=== PATIENT | female | born 1940 | race Caucasian/White ===

== ENCOUNTER 2017-08-18 09:48 | Inpatient (IN) | payer OTHER, MEDICARE ==
[~2017-08-18] VITALS: Ht 154.9 cm; Wt 65.3 kg
[2017-08-18] VITALS (9 sets, daily range): BP systolic 130–188; BP diastolic 63–93; PULSE 80–95; RESP 14–22; TEMP 98.3–99.4; O2SAT 95–100
[2017-08-18] MEDS ORDERED: SIMV20TA PO (10:24)
[2017-08-18] MEDS ORDERED: LISI-515 PO (10:24)
--- NOTE | 2017-08-18 10:40 | PD ---
HPI Chief Complaint: Chest Pain Time Seen by Provider: 10:35 Travel History International Travel<30 days: No Contact w/Intl Traveler<30days: No Traveled to known affect area: No History of Present Illness HPI 76-year-old male patient with history of hypertension and high cholesterol, presents to the ER today for chest pains that has been going on intermittently over the last week. She states that it seems to be pressure-like and radiates up into her neck area, and reports mild shortness of breath. She denies any nausea, vomiting, fevers, or other symptoms. She denies any significant pain currently. Modifying Factors: None Associated Signs & Symptoms: Chest pain Risk Factors: chest pain PFSH Past Medical History High Cholesterol: Yes Diminished Hearing: No Hypertension: Yes Tetanus Vaccination: < 5 Years Influenza Vaccination: No : 3 Para: 3 Miscarriage: 0 : 0 Past Surgical History Cholecystectomy: Yes Hysterectomy: Yes Social History Alcohol Use: Yes (BEER FREQUENTLY) Tobacco Use: No Substance Use: No Allergies-Medications (Allergen,Severity, Reaction): Coded Allergies: aspirin (Verified Adverse Reaction, Intermediate, Heartburn, 08/18/17) Reported Meds & Prescriptions Reported Meds & Active Scripts Active Reported Simvastatin 20 Mg Tab 20 Mg PO DAILY Lisinopril 20 Mg Tab 20 Mg PO DAILY Review of Systems Except as stated in HPI: all other systems reviewed are Neg Physical Exam Narrative GENERAL: Well-developed elderly female patient currently in mild distress. Awake and oriented 3. SKIN: Focused skin assessment warm/dry. HEAD: Atraumatic. Normocephalic. EYES: Pupils equal and round. No scleral icterus. No injection or drainage. ENT: No nasal bleeding or discharge. Mucous membranes pink and moist. NECK: Trachea midline. No JVD. Supple. No palpable masses. CARDIOVASCULAR: Regular rate and rhythm. No murmur appreciated. RESPIRATORY: No accessory muscle use. Clear to auscultation. Breath sounds equal bilaterally. GASTROINTESTINAL: Abdomen soft, non-tender, nondistended. Hepatic and splenic margins not palpable. MUSCULOSKELETAL: No obvious deformities. No clubbing. No cyanosis. No edema. NEUROLOGICAL: Awake and alert. No obvious cranial nerve deficits. Motor grossly within normal limits. Normal speech. PSYCHIATRIC: Appropriate mood and affect; insight and judgment normal. Data Data Last Documented VS Vital Signs Date Time Temp Pulse Resp B/P (MAP) Pulse Ox O2 Delivery O2 Flow Rate FiO2 08/18/17 10:25 22 100 Room Air 08/18/17 10:21 82 08/18/17 09:51 98.7 Orders Orders Electrocardiogram (08/18/17 ) Electrocardiogram (08/18/17 10:35) Ckmb (Isoenzyme) Profile (08/18/17 10:35) Complete Blood Count With Diff (08/18/17 10:35) Comprehensive Metabolic Panel (08/18/17 10:35) Magnesium (Mg) (08/18/17 10:35) Prothrombin Time / Inr (Pt) (08/18/17 10:35) Act Partial Throm Time (Ptt) (08/18/17 10:35) Troponin I (08/18/17 10:35) Chest, Single Ap (08/18/17 10:35) Ecg Monitoring (08/18/17 10:35) Bilateral Bp Monitoring (08/18/17 10:35) Iv Access Insert/Monitor (08/18/17 10:35) Oximetry (08/18/17 10:35) Oxygen Administration (08/18/17 10:35) Sodium Chloride 0.9% Flush (Ns Flush) (08/18/17 10:45) Labs Laboratory Tests Test 08/18/17 10:55 White Blood Count 9.7 TH/MM3 Red Blood Count 4.50 MIL/MM3 Hemoglobin 13.3 GM/DL Hematocrit 38.8 % Mean Corpuscular Volume 86.1 FL Mean Corpuscular Hemoglobin 29.6 PG Mean Corpuscular Hemoglobin Concent 34.4 % Red Cell Distribution Width 14.7 % Platelet Count 299 TH/MM3 Mean Platelet Volume 9.2 FL Neutrophils (%) (Auto) 64.5 % Lymphocytes (%) (Auto) 26.3 % Monocytes (%) (Auto) 8.0 % Eosinophils (%) (Auto) 0.6 % Basophils (%) (Auto) 0.6 % Neutrophils # (Auto) 6.2 TH/MM3 Lymphocytes # (Auto) 2.5 TH/MM3 Monocytes # (Auto) 0.8 TH/MM3 Eosinophils # (Auto) 0.1 TH/MM3 Basophils # (Auto) 0.1 TH/MM3 CBC Comment DIFF FINAL Differential Comment Prothrombin Time 10.2 SEC Prothromb Time International Ratio 1.0 RATIO Activated Partial Thromboplast Time 30.2 SEC Blood Urea Nitrogen 15 MG/DL Creatinine 0.83 MG/DL Random Glucose 117 MG/DL Total Protein 7.5 GM/DL Albumin 3.0 GM/DL Calcium Level 8.8 MG/DL Magnesium Level 2.1 MG/DL Alkaline Phosphatase 96 U/L Aspartate Amino Transf (AST/SGOT) 18 U/L Alanine Aminotransferase (ALT/SGPT) 14 U/L Total Bilirubin 0.5 MG/DL Sodium Level 138 MEQ/L Potassium Level 3.7 MEQ/L Chloride Level 106 MEQ/L Carbon Dioxide Level 24.0 MEQ/L Anion Gap 8 MEQ/L Estimat Glomerular Filtration Rate 67 ML/MIN Total Creatine Kinase 43 U/L Troponin I LESS THAN 0.02 NG/ML [place] Medical Decision Making Medical Screen Exam Complete: Yes Emergency Medical Condition: Yes Medical Record Reviewed: Yes Interpretation(s) EKG shows NSR, no ST elevation or depression, and no arrhythmias. No significant T-wave inversions. Laboratory Tests Test 08/18/17 10:55 Activated Partial Thromboplast Time 30.2 SEC (24.3-30.1) Random Glucose 117 MG/DL (74-106) Albumin 3.0 GM/DL (3.4-5.0) Estimat Glomerular Filtration Rate 67 ML/MIN (>89) Troponin I LESS THAN 0.02 NG/ML Differential Diagnosis Chest pain: ACS versus anxiety attack versus musculoskeletal Narrative Course EKG did not show some signs of dysrhythmias. Cardiac enzymes negative. Chest x -ray is unremarkable. At this point, my plan would be to admit her for further evaluation of chest pain. Diagnosis Primary Impression: Chest pain Admitting Information Admitting Physician Requests: Admit Mau Acosta MD Aug 18, 2017 10:40
[2017-08-18] MEDS ORDERED: SODIUM CHLORIDE 0.9% FLUSH 10 ML FLUSH IVF PRN (10:45)
--- NOTE | 2017-08-18 10:55 | RADRPT ---
EXAM DATE/TIME: 08/18/2017 10:43 [facility] COMPARISON: No previous studies available for comparison. INDICATIONS : Pain in chest, neck and jaw off and on for 2 weeks, denies injury, no pain this morning MEDICAL HISTORY : None. SURGICAL HISTORY : Hysterectomy. Cholecystectomy. ENCOUNTER: Initial ACUITY: 2 weeks PAIN SCORE: 0/10 LOCATION: Bilateral chest FINDINGS: A single view of the chest demonstrates the lungs to be symmetrically aerated without evidence of mas s, infiltrate or effusion. The cardiomediastinal contours are unremarkable. Osseous structures are intact. CONCLUSION: No acute disease. Jaren Alarcon MD FACR on August 18, 2017 at 10:53 Board Certified Radiologist. This report was verified electronically.
[2017-08-18 11:17] LABS: AUTOMATED NEUTROPHIL # 6.2 TH/MM3 (1.8-7.7); BASOPHIL # 0.1 TH/MM3 (0-0.2); BASOPHIL % 0.6 % (0.0-2.0); EOSINOPHIL # 0.1 TH/MM3 (0-0.4); EOSINOPHIL % 0.6 % (0.0-4.0); HEMATOCRIT 38.8 % (35.0-46.0); HEMOGLOBIN 13.3 GM/DL (11.6-15.3); LYMPH % 26.3 % (9.0-44.0); LYMPHOCYTE # 2.5 TH/MM3 (1.0-4.8); MEAN CELL VOLUME 86.1 FL (80.0-100.0); MEAN CORPUSCULAR HEMOGLOBIN 29.6 PG (27.0-34.0); MEAN CORPUSCULAR HGB CONC 34.4 % (32.0-36.0); MEAN PLATELET VOLUME 9.2 FL (7.0-11.0); MONOCYTE # 0.8 TH/MM3 (0-0.9); NEUT % 64.5 % (16.0-70.0); PLATELET COUNT 299 TH/MM3 (150-450); RED CELL DISTRIBUTION WIDTH 14.7 % (11.6-17.2); WHITE BLOOD COUNT 9.7 TH/MM3 (4.0-11.0)
[2017-08-18 11:33] LABS: PROTHROMBIN TIME - PATIENT 10.2 SEC (9.8-11.6)
[2017-08-18 11:34] LABS: ALT (GPT) 14 U/L (10-53); AST (GOT) 18 U/L (15-37); BLOOD UREA NITROGEN 15 MG/DL (7-18); CALCIUM 8.8 MG/DL (8.5-10.1); CHLORIDE 106 MEQ/L (98-107); CREATININE 0.83 MG/DL (0.50-1.00); GLOMERULAR FILTRATION RATE 67 ML/MIN (>89); GLUCOSE,RANDOM 117 MG/DL (74-106); MAGNESIUM 2.1 MG/DL (1.5-2.5); SODIUM (NA) 138 MEQ/L (136-145)
[2017-08-18 11:38] LABS: ALKALINE PHOSPHATASE 96 U/L (45-117); TOTAL BILIRUBIN ADULT 0.5 MG/DL (0.2-1.0); TOTAL PROTEIN 7.5 GM/DL (6.4-8.2); TROPONIN I LESS THAN 0.02 NG/ML (0.02-0.05)
--- NOTE | 2017-08-18 12:41 | HHI.HP ---
[facility] Primary Care Physician Meenakshi Evans MD Chief Complaint Chest pain History of Present Illness This is a 76-year-old female history of hypertension and hyperlipidemia presents to ED via private vehicle with her with a complaint of chest discomfort. Patient states she has been having a chest pressure in the upper chest as well as neck discomfort and jaw discomfort intermittently for the past week. States taking Advil does seem to help within a couple hours reducing the discomfort but it will last for a total of 5 hours. If she does not take an Advil he can linger on longer. She thinks that pressing on the area and certain movements seem to worsen her symptoms. Also over the last few days she has become short of breath with the symptoms. Denies nausea or diaphoresis. Has no dyspnea on exertion. Has not noticed any weight changes or swelling in legs. Denies history of CAD but cannot recall ever having a stress test. Has never had a cardiac catheterization. Voices compliance with her medications. Patient initially was going to leave AGAINST MEDICAL ADVICE, stated "I have pets at home." Patient has since changed her mind and will come to chest pain center to rule out and if so will have stress test in the morning. Review of Systems General: Patient denies fevers, chills recent, and recent travel HEENT: Patient denies headache, sore throat, difficulty swallowing. Cardiovascular: Has the chest discomfort as mentioned above. Denies sensation of heart beating rapidly or irregularly. No syncope. Denies diaphoresis. Respiratory: She has been short of breath over the last few days with her discomforts. Denies inspirational chest discomfort. Denies coughing wheezing or hemoptysis. GI: Patient denies nausea, vomiting, diarrhea, abdominal pain, bloody stools. Musculoskeletal: Patient denies joint pain or edema. Denies calf pain or edema. Neurovascular: Patient denies numbness, tingling, weakness in extremities. Denies headache. Endocrine: Denies polyuria and polydipsia. Hematologic: Denies easy bruising. Skin: Denies rash or itching. Past Family Social History Allergies: Coded Allergies: aspirin (Verified Adverse Reaction, Intermediate, Heartburn, 08/18/17) Past Medical History Hypertension and hyperlipidemia. Denies diabetes and known CAD. Past Surgical History Hysterectomy and cholecystectomy. Reported Medications Reported Meds & Active Scripts Active Reported Simvastatin 20 Mg Tab 20 Mg PO DAILY Lisinopril 20 Mg Tab 20 Mg PO DAILY Active Ordered Medications Current Medications Medications (Trade) Dose Ordered Sig/Zain Route Start Time Stop Time Status Last Admin (NS Flush) 2 ml UNSCH PRN IVF 08/18/17 10:45 (Tylenol) 500 mg Q4H PRN PO 08/18/17 12:45 UNV ([place] 7.5-325 Mg) 1 tab Q4H PRN PO 08/18/17 12:45 UNV (Zofran Inj) 4 mg Q6H PRN IV PUSH 08/18/17 12:45 UNV (Protonix) 40 mg DAILY PO 08/18/17 12:45 UNV (Aspirin) 325 mg DAILY PO 08/19/17 09:00 UNV (Xanax) 0.25 mg Q8H PRN PO 08/18/17 12:45 UNV Family History Denies family history of CAD. Social History Lifetime non-smoker. Rarely has alcohol. Denies illicit drugs. Physical Exam Vital Signs Vital Signs Date Time Temp Pulse Resp B/P (MAP) Pulse Ox O2 Delivery O2 Flow Rate FiO2 08/18/17 10:25 22 100 Room Air 08/18/17 10:21 82 20 137/78 (97) 100 Room Air 08/18/17 09:51 98.7 88 14 130/93 (105) 98 Physical Exam GENERAL: This is a well-nourished, well-developed patient, in no apparent distress. Patient speaks in clear complete sentences. Patient is pleasant. HEENT: Head is atraumatic and normocephalic. Neck is supple without lymphadenopathy and trachea is midline. No JVD or carotid bruits. CARDIOVASCULAR: Regular rate and rhythm without murmurs, gallops, or rubs. RESPIRATORY: Clear to auscultation. Breath sounds equal bilaterally. No wheezes , rales, or rhonchi. Upper chest wall is tender. Discomfort is not reproduced with movement of her neck. No use of accessory muscles. GASTROINTESTINAL: Abdomen is nontender, nondistended. Abdomen soft. No obvious pulsatile mass or bruit. No CVA tenderness. Strong femoral pulses bilaterally. Normal bowel sounds in all quadrants. MUSCULOSKELETAL: Patient is moving upper and lower extremities freely. No calf tenderness or edema, no Homans sign. Strong pulses in upper and lower extremities. NEUROLOGICAL: Patient is alert and oriented. Cranial nerves 2-12 are grossly intact. No focal deficits and speech is clear. SKIN: No rash and turgor is normal. Laboratory Laboratory Tests Test 08/18/17 10:55 White Blood Count 9.7 Red Blood Count 4.50 Hemoglobin 13.3 Hematocrit 38.8 Mean Corpuscular Volume 86.1 Mean Corpuscular Hemoglobin 29.6 Mean Corpuscular Hemoglobin Concent 34.4 Red Cell Distribution Width 14.7 Platelet Count 299 Mean Platelet Volume 9.2 Neutrophils (%) (Auto) 64.5 Lymphocytes (%) (Auto) 26.3 Monocytes (%) (Auto) 8.0 Eosinophils (%) (Auto) 0.6 Basophils (%) (Auto) 0.6 Neutrophils # (Auto) 6.2 Lymphocytes # (Auto) 2.5 Monocytes # (Auto) 0.8 Eosinophils # (Auto) 0.1 Basophils # (Auto) 0.1 CBC Comment DIFF FINAL Differential Comment Prothrombin Time 10.2 Prothromb Time International Ratio 1.0 Activated Partial Thromboplast Time 30.2 Blood Urea Nitrogen 15 Creatinine 0.83 Random Glucose 117 Total Protein 7.5 Albumin 3.0 Calcium Level 8.8 Magnesium Level 2.1 Alkaline Phosphatase 96 Aspartate Amino Transf (AST/SGOT) 18 Alanine Aminotransferase (ALT/SGPT) 14 Total Bilirubin 0.5 Sodium Level 138 Potassium Level 3.7 Chloride Level 106 Carbon Dioxide Level 24.0 Anion Gap 8 Estimat Glomerular Filtration Rate 67 Total Creatine Kinase 43 Troponin I LESS THAN 0.02 Result Diagram: 08/18/17 1055 08/18/17 1055 Course Initial EKG is sinus rhythm rate of [address] segment depressions or elevations. Caprini VTE Risk Assessment Caprini VTE Risk Assessment: Mod/High Risk (score >= 2) Caprini Risk Assessment Model Point Value = 1 Point Value = 2 Point Value = 3 Point Value = 5 Age 41-60 Minor surgery BMI > 25 kg/m2 Swollen legs Varicose veins or History of unexplained or recurrent spontaneous Oral contraceptives or hormone replacement Sepsis (< 1 month) Serious lung disease, including pneumonia (< 1 month) Abnormal pulmonary function Acute myocardial infarction Congestive heart failure (< 1 month) History of inflammatory bowel disease Medical patient at bed rest Age 61-74 Arthroscopic surgery Major open surgery (> 45 min) Laparoscopic surgery (> 45 min) Malignancy Confined to bed (> 72 hours) Immobilizing plaster cast Central venous access Age >= 75 History of VTE Family history of VTE Factor V Leiden Prothrombin [id number] Lupus anticoagulant Anticardiolipin antibodies Elevated serum homocysteine Heparin-induced thrombocytopenia Other congenital or acquired thrombophilia Stroke (< 1 month) Elective arthroplasty Hip, pelvis, or leg fracture Acute spinal cord injury (< 1 month) Prophylaxis Regimen Total Risk Factor Score Risk Level Prophylaxis Regimen 0-1 Low Early ambulation 2 Moderate Order ONE of the following: *Sequential Compression Device (SCD) *Heparin 5000 units SQ BID 3-4 Higher Order ONE of the following medications: *Heparin 5000 units SQ TID *Enoxaparin/Lovenox 40 mg SQ daily (WT < 150 kg, CrCl > 30 mL/min) *Enoxaparin/Lovenox 30 mg SQ daily (WT < 150 kg, CrCl > 10-29 mL/min) *Enoxaparin/Lovenox 30 mg SQ BID (WT < 150 kg, CrCl > 30 mL/min) AND/OR *Sequential Compression Device (SCD) 5 or more Highest Order ONE of the following medications: *Heparin 5000 units SQ TID (Preferred with Epidurals) *Enoxaparin/Lovenox 40 mg SQ daily (WT < 150 kg, CrCl > 30 mL/min) *Enoxaparin/Lovenox 30 mg SQ daily (WT < 150 kg, CrCl > 10-29 mL/min) *Enoxaparin/Lovenox 30 mg SQ BID (WT < 150 kg, CrCl > 30 mL/min) AND *Sequential Compression Device (SCD) Assessment and Plan Assessment and Plan * Chest pain: Patient will continue to have serial cardiac enzymes and EKGs for ruling out purposes. She was seen by Dr. Marky Bravo of cardiology in the chest pain center and will have chemical stress test in the morning if she rules out. Patient will be discharged home if her stress test was nonischemic with instructions to follow-up with PCP. Return to ED for interval issues. * Hypertension: Continue current medication. * Hyperlipidemia: Continue current medication. Patient is stable at this time. She is agreeable to this plan. Jarred Arceo Aug 18, 2017 12:41
[2017-08-18] MEDS ORDERED: ONDANSETRON HCL 4 MG/2 ML VIAL IV PUSH PRN (12:45)
[2017-08-18] MEDS ORDERED: ALPRAZolam 0.25 MG TAB PO PRN (12:45)
[2017-08-18] MEDS ORDERED: ACETAMINOPHEN/HYDROcodone 325 MG/7.5 MG TAB PO PRN (12:45)
[2017-08-18] MEDS: PANTOPRAZOLE SOD 40 MG DELAYED RELEASE TAB PO SCH (13:33)
[2017-08-18 15:09] LABS: TROPONIN I LESS THAN 0.02 NG/ML (0.02-0.05)
--- NOTE | 2017-08-18 17:23 | HHI.PR ---
Subjective Remarks 16 run of V-tach while in the chest pain center. Patient converted to Inpatient , [facility] ordered, patient transferred to [facility] service. Cardiology consulted. Objective Vitals Vital Signs Date Time Temp Pulse Resp B/P (MAP) Pulse Ox O2 Delivery O2 Flow Rate FiO2 08/18/17 17:04 84 142/64 (90) 08/18/17 14:50 83 08/18/17 13:53 08/18/17 13:51 98.3 82 18 188/75 (112) 96 08/18/17 13:30 80 16 148/65 (92) 99 Room Air 08/18/17 10:25 22 100 Room Air 08/18/17 10:21 82 20 137/78 (97) 100 Room Air 08/18/17 09:51 98.7 88 14 130/93 (105) 98 Result Diagram: 08/18/17 1055 08/18/17 1055 Antoine Hollins MD Aug 18, 2017 17:23
[2017-08-18 17:51] LABS: TROPONIN I LESS THAN 0.02 NG/ML (0.02-0.05)
[2017-08-18] MEDS ORDERED: IBUPROFEN 200 MG TAB PO ONE (19:30)
[2017-08-18 19:54] LABS: THYROXINE (T4) 16.7 MCG/DL (4.8-13.9)
[2017-08-18 20:03] LABS: FREE T3 6.41 PG/ML (2.18-3.98)
[2017-08-18] MEDS: METOPROLOL TARTRATE 25 MG TAB PO SCH (21:07)
[2017-08-18] MEDS ORDERED: CHLORHEXIDINE GLUCONATE 2 % 1 PACK (2 CLOTHS)(extra cloths) TOPICAL PRN (22:15)
[2017-08-19] VITALS (7 sets, daily range): BP systolic 118–143; BP diastolic 60–66; PULSE 71–82; RESP 20–32; TEMP 97.4–98.8; O2SAT 94–100
[2017-08-19] MEDS: CHLORHEXIDINE GLUCONATE 2 % 1 PACK (2 CLOTHS)(taper/protocol) TOPICAL SCH (04:08)
[2017-08-19] MEDS: ASPIRIN 325 MG TAB PO SCH (07:59)
[2017-08-19] MEDS: METOPROLOL TARTRATE 25 MG TAB PO SCH ×2 (07:59→21:44)
[2017-08-19] MEDS: PANTOPRAZOLE SOD 40 MG DELAYED RELEASE TAB PO SCH (07:59)
[2017-08-19] MEDS ORDERED: LISINOPRIL 20 MG TAB PO SCH (09:00)
[2017-08-19] MEDS ORDERED: PRAVASTATIN SOD 40 MG TAB PO SCH (09:00)
--- NOTE | 2017-08-19 09:15 | MB ---
cc: DAGOBERTO MCDONALD DATE OF CONSULTATION 08/19/2017 REASON FOR CONSULTATION Wide complex tachycardia, chest pain. HISTORY OF PRESENT ILLNESS The patient is a 76-year-old white female with a history of hypertension, hyperlipidemia who was in her usual state of health up until one week prior to admission when she began to experience bilateral jaw, bilateral neck discomfort. The discomfort often would radiate to her midline upper chest. These pains would last sometimes up to several hours. Taking Advil or Motrin would almost completely relieve the discomforts. One time, the pains were associated with shortness of breath. She denies diaphoresis, nausea, pleurisy, dizziness, syncope, near-syncope, palpitations, pedal edema, paroxysmal nocturnal dyspnea. The chest and jaw discomforts had no relationship whatsoever to exertion. PAST MEDICAL HISTORY 1. Hypertension 2. Hyperlipidemia PAST SURGICAL HISTORY 1. Cholecystectomy 2. Hysterectomy MEDICATIONS Her cardiac medications at home: 1. Simvastatin 20 mg daily 2. Lisinopril 20 mg daily ALLERGIES ASPIRIN (heartburn). FAMILY HISTORY There is no significant family history of early myocardial infarction. SOCIAL HISTORY The patient denies any history of alcohol or tobacco abuse. REVIEW OF SYSTEMS As in the history of present illness, otherwise negative or noncontributory. She also denies headache, abdominal pain, melena, dyspepsia, bright red blood per rectum. PHYSICAL EXAMINATION VITAL SIGNS: Blood pressure 118/64 with a pulse of 79, respirations 24. GENERAL: She is a well-developed, well-nourished white female in no acute distress. HEENT: On examination, jugular venous pressure is normal. Carotid pulses are 2+ bilaterally and without bruits. CHEST: Examination of the chest reveals clear lung tidwell. CARDIAC: On cardiac examination, she has a regular rhythm and rate without S3, S4 or murmur. ABDOMEN: She has a soft, nontender abdomen. Bowel sounds are present. There is no definite hepatosplenomegaly. EXTREMITIES: Examination of extremities reveals no clubbing, cyanosis or edema. Peripheral pulses are normal throughout. LABORATORY DATA Includes BUN 15, creatinine 0.83, potassium 3.7, negative cardiac enzymes, TSH 0.009, normal CBC. CHEST X-RAY Shows no acute disease. EKG Shows normal sinus rhythm, normal EKG. IMPRESSION Atypical symptoms for myocardial ischemia, wide complex tachycardia in this 76-year-old white female with a history of hypertension, hyperlipidemia. Her symptoms in the past several days are very atypical for myocardial ischemia. EKG's are normal. Cardiac enzymes are negative despite prolonged symptoms. She also has had consistent relief of her pains with Motrin. With respect to the wide complex tachycardia, I suspect it is an aberrantly conducted atrial flutter (the episode begins with a long short RR interval, the initial deflections of the QRS complex during the tachycardia are very similar to her nome QRS complexes). The patient was asymptomatic with the brief tachyarrhythmia. Laboratory data also suggests she may be hyperthyroid. RECOMMENDATIONS 1. Check a Lexiscan nuclear stress test. 2. Change her Lisinopril to Cardizem CD 180 mg daily 3. Treat her possible hyperthyroidism. 4. We will follow up as needed for any abnormalities seen on nuclear stress testing. If it is negative for ischemia, she is cleared for discharge from a cardiac standpoint. MD ELI Pineda/SHELLY /8:07 AM /8:57 AM JANINA
[2017-08-19] MEDS: DILTIAZEM-CD 180 MG CAP ER PO SCH (10:12)
[2017-08-19] MEDS: ACETAMINOPHEN 500 MG CPLT PO PRN ×2 (10:19→15:26)
[2017-08-19] MEDS ORDERED: REGADENOSON INJ 0.4 MG/5 ML SYR ONE (14:24)
--- NOTE | 2017-08-19 15:25 | RADRPT ---
EXAM DATE/TIME: 08/19/2017 13:17 [facility] COMPARISON: No previous studies available for comparison. INDICATIONS : Chest pain for 1 day. Angina. Abnormal EKG. DOSE: 26.3 mCi Tc99m Myoview at stress. 8.3 mCi Tc99m Myoview at rest. 0.4 mg Lexiscan STRESS SYMPTOMS: Chest pain, stomach pain, headache and dyspnea. EJECTION FRACTION: > 70% MEDICAL HISTORY : Hypertension. SURGICAL HISTORY : Hysterectomy. Cholecystectomy. ENCOUNTER: Initial ACUITY: 1 day PAIN SCALE: 3/10 LOCATION: Bilateral chest TECHNIQUE: The patient underwent pharmacologic stress with infusion of prescribed dose. Continuous ECG tracing was monitored during stress. Gated SPECT imaging was performed after stress and conventional SPECT i maging was performed at rest. The examination was performed on a SPECT/CT scanner, both attenuation and non-corrected datasets were reviewed. FINDINGS: DISTRIBUTION: The maximum perfused segment at stress is in the septum wall. PERFUSION STUDY: The pattern of perfusion at stress is within normal limits. GATED STUDY: There is intact wall motion and thickening without hypokinetic or dyskinetic segments. CONCLUSION: 1. No reversible perfusion defect to suggest stress-induced myocardial ischemia identified. RISK CATEGORY: Low (<1% Annual Mortality Rate) Antoine Alarcon MD on August 19, 2017 at 15:21 Board Certified Radiologist. This report was verified electronically.
--- NOTE | 2017-08-19 15:46 | HHI.PR ---
Subjective Remarks c/o throat pain. also c/o some pain in the back of the neck Denies cp, sob. Objective Vitals Vital Signs Date Time Temp Pulse Resp B/P (MAP) Pulse Ox O2 Delivery O2 Flow Rate FiO2 08/19/17 15:00 80 08/19/17 12:42 18 08/19/17 12:00 98.8 74 24 143/60 (87) 96 08/19/17 08:00 98.6 73 24 143/66 (91) 100 08/19/17 07:00 71 08/19/17 04:00 79 08/19/17 04:00 97.4 79 24 118/64 (82) 94 08/19/17 00:00 79 08/19/17 00:00 98.2 79 20 137/61 (86) 96 08/18/17 20:06 99.4 95 20 139/63 (88) 98 08/18/17 20:00 90 08/18/17 20:00 99.4 84 19 149/67 (94) 95 08/18/17 17:04 84 142/64 (90) Result Diagram: 08/18/17 1055 08/18/17 1055 Imaging Last Impressions Myocardial Perfusion Scan Nuc Med 08/19/17 0000 Signed Impressions: Service Date/Time: Saturday, August 19, 2017 13:17 - CONCLUSION: 1. No reversible perfusion defect to suggest stress-induced myocardial ischemia identified. RISK CATEGORY: Low (<1%% Annual Mortality Rate) Antoine Alarcon MD Chest X-Ray 08/18/17 1035 Signed Impressions: Service Date/Time: Friday, August 18, 2017 10:43 - CONCLUSION: No acute disease. Jaren Alarcon MD FACR Objective Remarks AAOx3 NAD tender right and left submandibular lymph nodes. there is some tenderness on palpation of R sternocleidomastoid muscle S1S2 RRR clear lungs bl Medications and IVs Current Medications Medications (Trade) Dose Ordered Sig/Zain Route Start Time Stop Time Status Last Admin (NS Flush) 2 ml UNSCH PRN IVF 08/18/17 10:45 (Tylenol) 500 mg Q4H PRN PO 08/18/17 12:45 08/19/17 15:26 ([place] 7.5-325 Mg) 1 tab Q4H PRN PO 08/18/17 12:45 (Zofran Inj) 4 mg Q6H PRN IV PUSH 08/18/17 12:45 (Protonix) 40 mg DAILY PO 08/18/17 12:45 08/19/17 07:59 (Aspirin) 325 mg DAILY PO 08/19/17 09:00 (Xanax) 0.25 mg Q8H PRN PO 08/18/17 12:45 08/18/17 14:28 (Lopressor) 25 mg Q12HR PO 08/18/17 21:00 08/19/17 07:59 Miscellaneous Information Patient in critical care unit? Ass... [id number] .XX 08/18/17 22:15 (Chlorhexidine 2% Cloth) 3 pack DAILY@04 TOPICAL 08/19/17 04:00 08/23/17 04:01 08/19/17 04:08 (Chlorhexidine 2% Cloth) 3 pack UNSCH PRN TOPICAL 08/18/17 22:15 08/23/17 22:03 (Cardizem Cd) 180 mg DAILY PO 08/19/17 09:00 08/19/17 10:12 (Trimox) 500 mg BID PO 08/19/17 21:00 (Flexeril) 10 mg ONCE ONCE PO 08/19/17 16:15 08/19/17 16:16 (Flexeril) 10 mg Q8H PRN PO 08/19/17 16:15 A/P Problem List: (1) Throat pain in adult ICD Code: R07.0 - Pain in throat Plan: check Group A strep screen, throat culture. Start Amoxicillin. check Flu antigen. (2) Neck pain ICD Code: M54.2 - Cervicalgia Plan: RX Flexeril. (3) Chest pain ICD Code: R07.9 - Chest pain, unspecified Status: Acute Plan: Cardiology consulted. stress test negative. trops negative x3. chest pain likely radiation from throat pain. (4) Hyperthyroidism ICD Code: E05.90 - Thyrotoxicosis, unspecified without thyrotoxic crisis or storm Plan: TSH low, Ft4 elevated. Start Methimazole. Vtach likely induced by hyperthyroidism. Assessment and Plan DVT prophylaxis: SCD's. Discharge Planning ok to transfer to the medical floor. DC in am if stable. Jin De La Rosa MD Aug 19, 2017 15:46
[2017-08-19] MEDS ORDERED: CYCLOBENZAPRINE HCL 10 MG TAB PO ONE (16:15)
[2017-08-19] MEDS ORDERED: CYCLOBENZAPRINE HCL 10 MG TAB PO PRN (16:15)
[2017-08-19] MEDS: METHIMAZOLE 10 MG TAB PO SCH ×2 (17:49→21:44)
--- NOTE | 2017-08-19 18:10 | EKG ---
Date Performed: 08/18/2017 Time Performed: 17:04:50 PTAGE: 76 years EKG: Sinus rhythm LOW QRS VOLTAGE IN PRECORDIAL LEADS BORDERLINE ECG Since PREVIOUS TRACING , no significant change noted PREVIOUS TRACIN08/18/2017 14.00 DOCTOR: Genia Galloway Interpretating Date/Time 08/19/2017 18:08:00
--- NOTE | 2017-08-19 18:11 | EKG ---
Date Performed: 08/18/2017 Time Performed: 14:00:09 PTAGE: 76 years EKG: Sinus rhythm NORMAL ECG Since PREVIOUS TRACING , no significant change noted PREVIOUS TRACIN08/18/2017 10.17 DOCTOR: Genia Galloway Interpretating Date/Time 08/19/2017 18:09:08
--- NOTE | 2017-08-19 18:12 | EKG ---
Date Performed: 08/18/2017 Time Performed: 10:17:22 PTAGE: 76 years EKG: Sinus rhythm NORMAL ECG NO PREVIOUS TRACING DOCTOR: Genia Galloway Interpretating Date/Time 08/19/2017 18:09:28
[2017-08-19] MEDS ORDERED: AMOXICILLIN (TRIHYDRATE) 500 MG CAP PO SCH (21:00)
[2017-08-20] VITALS: BP 116/58; PULSE 70; PULSE 82; RESP 16; TEMP 98; O2SAT 95
[2017-08-20] MEDS: CHLORHEXIDINE GLUCONATE 2 % 1 PACK (2 CLOTHS)(taper/protocol) TOPICAL SCH (03:10)
[2017-08-20 04:00] VITALS: BP 133/59; PULSE 65; PULSE 71; RESP 18; TEMP 98.3; O2SAT 96
[2017-08-20] MEDS: METHIMAZOLE 10 MG TAB PO SCH (05:23)
[2017-08-20 07:53] VITALS: PULSE 85
[2017-08-20] MEDS: ASPIRIN 325 MG TAB PO SCH (09:00)
[2017-08-20] MEDS ORDERED: AMOXICILLIN (TRIHYDRATE) 250 MG CAP PO SCH (09:00)
[2017-08-20 10:06] VITALS: O2SAT 96
[2017-08-20] MEDS: PANTOPRAZOLE SOD 40 MG DELAYED RELEASE TAB PO SCH (10:29)
[2017-08-20] MEDS: METOPROLOL TARTRATE 25 MG TAB PO SCH (10:29)
[2017-08-20] MEDS: DILTIAZEM-CD 180 MG CAP ER PO SCH (10:30)
[2017-08-20] MEDS ORDERED: METHI10 PO (11:15)
[2017-08-20] MEDS ORDERED: METO25TA3 PO (11:15)
[2017-08-20] MEDS ORDERED: CARD180C5 PO (11:15)
[2017-08-20] MEDS ORDERED: ASPI81TA23 PO (11:16)
[2017-08-20 11:56] VITALS: PULSE 84
--- NOTE | 2017-08-20 13:00 | HHI.PR ---
Subjective Remarks Follow-up wide-complex tachycardia/hyperthyroidism/neck pain 08/20/17-patient seen and examined, denies any chest pain or shortness of breath , still continued to complain of neck pain otherwise stable Objective Vitals Vital Signs Date Time Temp Pulse Resp B/P (MAP) Pulse Ox O2 Delivery O2 Flow Rate FiO2 08/20/17 12:03 Room Air 08/20/17 10:06 96 08/20/17 08:00 Room Air 08/20/17 07:53 85 08/20/17 04:00 98.3 65 18 133/59 (83) 96 08/20/17 04:00 71 08/20/17 00:00 70 08/20/17 00:00 98.0 82 16 116/58 (77) 95 08/19/17 17:01 18 08/19/17 16:00 98.7 82 32 135/64 (87) 99 08/19/17 15:00 80 I/O 08/19/17 08/19/17 08/19/17 08/20/17 08/20/17 08/20/17 07:00 15:00 23:00 07:00 15:00 23:00 Intake Total 60 ml Balance 60 ml Intake Oral 60 ml # Voids 2 # Bowel Movements 0 Result Diagram: 08/18/17 1055 08/18/17 1055 Imaging Last Impressions Myocardial Perfusion Scan Nuc Med 08/19/17 0000 Signed Impressions: Service Date/Time: Saturday, August 19, 2017 13:17 - CONCLUSION: 1. No reversible perfusion defect to suggest stress-induced myocardial ischemia identified. RISK CATEGORY: Low (<1%% Annual Mortality Rate) Antoine Alarcon MD Chest X-Ray 08/18/17 1035 Signed Impressions: Service Date/Time: Friday, August 18, 2017 10:43 - CONCLUSION: No acute disease. Jaren Alarcon MD FACR Objective Remarks GENERAL: NAD SKIN: Warm and dry. HEAD: Normocephalic. EYES: No scleral icterus. No injection or drainage. NECK: Supple, trachea midline. No JVD or lymphadenopathy. CARDIOVASCULAR: Regular rate and rhythm without murmurs, gallops, or rubs. RESPIRATORY: Breath sounds equal bilaterally. No accessory muscle use. GASTROINTESTINAL: Abdomen soft, non-tender, nondistended. MUSCULOSKELETAL: No cyanosis, or edema. BACK: Nontender without obvious deformity. No CVA tenderness. Procedures None A/P Problem List: (1) Throat pain in adult ICD Code: R07.0 - Pain in throat (2) Neck pain ICD Code: M54.2 - Cervicalgia (3) Chest pain ICD Code: R07.9 - Chest pain, unspecified Status: Acute (4) Hyperthyroidism ICD Code: E05.90 - Thyrotoxicosis, unspecified without thyrotoxic crisis or storm Assessment and Plan 76-year-old female with Throat pain in adult-improving Group A strep negative therefore will d/c Augmentin. Flu A and B antigens negative Neck pain RX Flexeril. Chest pain stress test negative. trops negative x3. chest pain likely radiation from throat pain. Wide-complex tachycardia Likely secondary from hyperthyroidism Hyperthyroidism Started on Methimazole. Recommend outpatient follow-up with endocrinology Need outpatient thyroid ultrasound Kojo Lui MD Aug 20, 2017 13:00
--- NOTE | 2017-08-20 13:01 | HHI.DS ---
Discharge Summary Admission Date Aug 18, 2017 at 17:22 Discharge Date: Aug 20, 2017 Admitting Diagnosis Chest pain (1) Throat pain in adult ICD Code: R07.0 - Pain in throat (2) Neck pain ICD Code: M54.2 - Cervicalgia (3) Chest pain ICD Code: R07.9 - Chest pain, unspecified Status: Acute (4) Hyperthyroidism ICD Code: E05.90 - Thyrotoxicosis, unspecified without thyrotoxic crisis or storm Procedures None Brief History - From Admission This is a 76-year-old female history of hypertension and hyperlipidemia presents to ED via private vehicle with her with a complaint of chest discomfort. Patient states she has been having a chest pressure in the upper chest as well as neck discomfort and jaw discomfort intermittently for the past week. States taking Advil does seem to help within a couple hours reducing the discomfort but it will last for a total of 5 hours. If she does not take an Advil he can linger on longer. She thinks that pressing on the area and certain movements seem to worsen her symptoms. Also over the last few days she has become short of breath with the symptoms. Denies nausea or diaphoresis. Has no dyspnea on exertion. Has not noticed any weight changes or swelling in legs. Denies history of CAD but cannot recall ever having a stress test. Has never had a cardiac catheterization. Voices compliance with her medications. Patient initially was going to leave AGAINST MEDICAL ADVICE, stated "I have pets at home." Patient has since changed her mind and will come to chest pain center to rule out and if so will have stress test in the morning. CBC/BMP: 08/18/17 1055 08/18/17 1055 Significant Findings Laboratory Tests Test 08/18/17 10:55 08/18/17 14:30 08/18/17 16:50 08/18/17 20:00 Activated Partial Thromboplast Time 30.2 SEC (24.3-30.1) Random Glucose 117 MG/DL (74-106) Albumin 3.0 GM/DL (3.4-5.0) Estimat Glomerular Filtration Rate 67 ML/MIN (>89) Troponin I LESS THAN 0.02 NG/ML LESS THAN 0.02 NG/ML LESS THAN 0.02 NG/ML Thyroxine (T4) 16.7 MCG/DL (4.8-13.9) Free Triiodothyronine (T3) pg/dL 6.41 PG/ML (2.18-3.98) Thyroid Stimulating Hormone 3rd Gen 0.009 uIU/ML (0.358-3.740) Test 08/19/17 19:30 Imaging Last Impressions Myocardial Perfusion Scan Nuc Med 08/19/17 0000 Signed Impressions: Service Date/Time: Saturday, August 19, 2017 13:17 - CONCLUSION: 1. No reversible perfusion defect to suggest stress-induced myocardial ischemia identified. RISK CATEGORY: Low (<1%% Annual Mortality Rate) Antoine Alarcon MD Chest X-Ray 08/18/17 1035 Signed Impressions: Service Date/Time: Friday, August 18, 2017 10:43 - CONCLUSION: No acute disease. Jaren Alarcon MD FACR PE at Discharge GENERAL: NAD SKIN: Warm and dry. HEAD: Normocephalic. EYES: No scleral icterus. No injection or drainage. NECK: Supple, trachea midline. No JVD or lymphadenopathy. CARDIOVASCULAR: Regular rate and rhythm without murmurs, gallops, or rubs. RESPIRATORY: Breath sounds equal bilaterally. No accessory muscle use. GASTROINTESTINAL: Abdomen soft, non-tender, nondistended. MUSCULOSKELETAL: No cyanosis, or edema. BACK: Nontender without obvious deformity. No CVA tenderness. Hospital Course While in hospital, patient was treated for: Throat pain in adult Group A strep negative therefore Augmentin was discontinued prior to discharge. Flu A and B antigens negative Neck pain RX Flexeril. Chest pain-resolved prior to discharge stress test negative. trops negative x3. chest pain likely radiation from throat pain. Appreciated input from cardiology Wide-complex tachycardia Likely secondary from hyperthyroidism Appreciated input from cardiology Hyperthyroidism Started on Methimazole. Recommend outpatient follow-up with endocrinology Need outpatient thyroid ultrasound Pt Condition on Discharge: Good Discharge Disposition: Discharge Home Discharge Time: <= 30 minutes Discharge Instructions DIET: Follow Instructions for: Heart Healthy Diet Activities you can perform: Regular-No Restrictions Follow up Referrals: Cardiology PCP Follow-up - 1 Week New Medications: Aspirin DR (Aspirin EC) 81 Mg Tabdr 81 MG PO DAILY for Prevent Blood Clot, #30 TAB 0 Refills Diltiazem CD 24 HR (Cardizem CD 24 HR) 180 Mg Caper 180 MG PO DAILY for Blood Pressure Management, #30 CAP 3 Refills Methimazole (Methimazole) 10 Mg Tab 10 MG PO Q8HR for Thyroid Supplement, #90 TAB 3 Refills Metoprolol Tartrate (Metoprolol Tartrate) 25 Mg Tab 25 MG PO Q12HR for Blood Pressure Management, #60 TAB 3 Refills Continued Medications: Simvastatin (Simvastatin) 20 Mg Tab 20 MG PO DAILY for Cholesterol Management, TAB 0 Refills Discontinued Medications: Lisinopril (Lisinopril) 20 Mg Tab 20 MG PO DAILY, TAB 0 Refills Kojo Lui MD Aug 20, 2017 13:01
[2017-08-22 14:17] LABS: MYCOPLASMA PNEUMONIAE IGG Negative (Negative); MYCOPLASMA PNEUMONIAE IGM Reactive (Negative); MYCOPLASMA PNEUMONIAE S BY IFA Positive (Negative)
== END 2017-08-20 14:45 | disposition home or self-care (01) | DRG 644 ==
LOC: NEPE 09:48 → EDBD 09:48 → NEDA 12:03 → NEPHCDU 13:49 → OBSVTOIN 17:22 → HIMN 19:55 → N04A 08-19 21:56
PROVIDERS: ADMIT Hospitalist; ATTEND Hospitalist
DX: E05.90 Thyrotoxicosis, unspecified without thyrotoxic crisis or storm (principal); I47.2 Ventricular tachycardia; I48.92 Unspecified atrial flutter; E78.5 Hyperlipidemia, unspecified; I10 Essential (primary) hypertension; R07.89 Other chest pain; R07.0 Pain in throat; M54.2 Cervicalgia; Z88.6 Allergy status to analgesic agent
CPT/HCPCS: 71045; 78452; 80053; 82550; 83735; 84436; 84443; 84481; 84484; 85025; 85610; 85730; 86738; 87641; 87804; 93005; 93017; A9502; J2785